=== PATIENT | male | born 1985 | race Caucasian/White ===

== ENCOUNTER 2019-06-08 15:15 | Emergency (ER) | payer MEDICARE ==
[2019-06-08] MEDS ORDERED: IPRATROPIUM-ALBUTEROL 3 ML NEB INHALATION STA (15:31)
--- NOTE | 2019-06-08 15:42 | ED ---
URI HPI - General Chief Complaint: Upper Respiratory Infection Stated Complaint: KLAUS, CHEST CONGESTION Time Seen by Provider: 06/08/19 15:27 Source: patient, RN notes reviewed Mode of arrival: ambulatory Limitations: no limitations - History of Present Illness Initial Comments: 34-year-old male presents emergency from chief complaint cough congestion sh ortness breath. Patient has underlying asthma. Patient states that he's had increasing symptoms last 3 weeks but states last 24 hours to get to the point where he cannot tolerate shortness of breath. 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 Patient reports no fever no chest pain I no dizziness denies any major nasal congestion. Patient has mild left ear pain. - Related Data Previous Rx's Medication Instructions Recorded Albuterol Sulfate [Proair Hfa] 1 - 2 puff INHALATION Q4HR PRN #1 06/08/19 inhaler Amoxicillin/Potassium Clav 1 tab PO Q12HR #20 tab 06/08/19 [Augmentin 875-125 Tablet] predniSONE 50 mg PO DAILY #5 tab 06/08/19 Allergies Allergy/AdvReac Type Severity Reaction Status Date / Time No Known Allergies Allergy Verified 06/08/19 15:22 Review of Systems ROS Statement: Those systems with pertinent positive or pertinent negative responses have been documented in the HPI. ROS Other: All systems not noted in ROS Statement are negative. Past Medical History Past Medical History: No Reported History History of Any Multi-Drug Resistant Organisms: None Reported Additional Past Surgical History / Comment(s): L below knee amputee Past Psychological History: Anxiety, Depression Smoking Status: Never smoker Past Alcohol Use History: Occasional Past Drug Use History: None Reported General Exam Limitations: no limitations General appearance: alert, in no apparent distress Head exam: Present: atraumatic, normocephalic, normal inspection Eye exam: Present: normal appearance, PERRL, EOMI. Absent: scleral icterus, conjunctival injection, periorbital swelling ENT exam: Present: normal oropharynx, mucous membranes moist. Absent: TM's normal bilaterally (Scarring noted, mild erythema on the left) Neck exam: Present: normal inspection, full ROM. Absent: tenderness, meningismus, lymphadenopathy Respiratory exam: Present: respiratory distress (Mild), wheezes, decreased breath sounds. Absent: normal lung sounds bilaterally, rales, rhonchi, stridor Cardiovascular Exam: Present: regular rate, normal rhythm, normal heart sounds. Absent: systolic murmur, diastolic murmur, rubs, gallop, clicks Course Vital Signs 06/08/19 06/08/19 06/08/19 15:23 15:34 15:44 Temperature 98.2 F Pulse Rate 97 85 Respiratory 18 22 Rate Blood Pressure 138/87 O2 Sat by Pulse 96 Oximetry 06/08/19 06/08/19 06/08/19 15:53 16:09 16:49 Temperature Pulse Rate 96 100 92 Respiratory Rate Blood Pressure O2 Sat by Pulse Oximetry 06/08/19 16:57 Temperature Pulse Rate Respiratory 22 Rate Blood Pressure O2 Sat by Pulse Oximetry Medical Decision Making - Medical Decision Making Patient is improved after breathing treatments. Patient does have mild residual wheezing was given steroids in the ED, will be discharged on prednisone, azithromycin return parameters were discussed. Patient advised follow-up with Liya [facility] and Monday Disposition Clinical Impression: Asthmatic bronchitis Disposition: HOME SELF-CARE Condition: Stable Instructions (If sedation given, give patient instructions): Upper Respiratory Infection (ED) Additional Instructions: Please return to the Emergency Department if symptoms worsen or any other concerns. Prescriptions: Amoxicillin/Potassium Clav [Augmentin 875-125 Tablet] 1 tab PO Q12HR #20 tab predniSONE 50 mg PO DAILY #5 tab Albuterol Sulfate [Proair Hfa] 1 - 2 puff INHALATION Q4HR PRN #1 inhaler PRN Reason: difficulty in breathing Is patient prescribed a controlled substance at d/c from ED?: No Referrals: Germán Diaz MD [Primary Care Provider] - 1-2 days Time of Disposition: 17:00
--- NOTE | 2019-06-08 15:57 | XR ---
EXAMINATION TYPE: XR chest 2V DATE OF EXAM: 06/08/2019 COMPARISON: NONE HISTORY: Congestion and shortness of breath for 3 weeks. TECHNIQUE: Frontal and lateral views of the chest are obtained. FINDINGS: There is no focal air space opacity, pleural effusion, or pneumothorax seen. The cardiac silhouette size is upper limits of normal. The osseous structures are intact. IMPRESSION: No acute cardiopulmonary process.
[2019-06-08] MEDS ORDERED: methylPREDNISolone SOD SUCCI 125 MG/2 ML VIAL IM ONE (16:22)
[2019-06-08] MEDS ORDERED: ALBUTEROL NEBULIZED 2.5 MG/3 ML INHALATION STA (16:22)
[2019-06-08 17:08] VITALS: PULSE 100
[2019-06-08 17:15] VITALS: BP 143/81; RESP 20; TEMP 97.4
== END 2019-06-08 17:10 | disposition home or self-care (01) ==
LOC: SUPCPDRO 15:15 → EC 15:15
DX: J45.909 Unspecified asthma, uncomplicated (principal); H73.892 Other specified disorders of tympanic membrane, left ear; H92.02 Otalgia, left ear
CPT/HCPCS: 94640 ×2; 71046; 99285; 96372; J2930

== ENCOUNTER → 2025-01-21 | Outpatient (CLI) | payer MEDICARE ==
--- NOTE | 2025-01-21 21:48 | XR ---
EXAMINATION TYPE: XR chest 2V DATE OF EXAM: 01/21/2025 10:51 AM COMPARISON: 06/08/2019 CLINICAL INDICATION: Male, 39 years old with history of R05.9 COUGH, UNSPECIFIED, , TECHNIQUE: Frontal and lateral views FINDINGS: Heart normal size. Aorta and pulmonary vasculature within normal limits. Mild interstitial prominence is unchanged. Old left-sided rib fracture deformities. Hazy peripheral lung densities relating to ov erlying soft tissue. No consolidation or pleural effusion. IMPRESSION: Chronic changes, possible bronchitis or chronic asthma. Interval development of left-sided rib fractu re deformities, likely old now. [facility], , 01/21/2025 9:46 PM
== END | disposition home or self-care (01) ==
LOC: RADXRMAIN 10:28
PROVIDERS: ATTEND Internal Medicine
DX: R05.9 Cough, unspecified (principal); M95.4 Acquired deformity of chest and rib
CPT/HCPCS: 71046